=== PATIENT | female | born 1955 | race Caucasian/White ===

== ENCOUNTER 2017-05-03 06:26 | Day surgery (SDC) | payer OTHER ==
[~2017-05-03 06:26] MED LIST: ALENDRONATE SOD70 M2 PO; CALTRATE 600+D1 EAC2 PO; TESTOSTERONE CREAM TP; VITAMIN D1000 UNI2 PO; WOMEN'S DAILY1 EAC6 PO
[2017-05-04] MEDS ORDERED: ULTRAM50 M1 PO (07:51)
== END 2017-05-04 09:00 ==
LOC: WSU 06:26 → SHSC 06:30 → ORW 10:34 → PACU 11:34 → OBGF 12:50
PROC: 0UT94ZZ Resection of Uterus, Percutaneous Endoscopic Approach (ICD-10-PCS; principal; 2017-05-03)
PROC: 0UTC4ZZ Resection of Cervix, Percutaneous Endoscopic Approach (ICD-10-PCS; 2017-05-03)
PROC: 0UT24ZZ Resection of Bilateral Ovaries, Percutaneous Endoscopic Approach (ICD-10-PCS; 2017-05-03)
PROC: 0UT74ZZ Resection of Bilateral Fallopian Tubes, Percutaneous Endoscopic Approach (ICD-10-PCS; 2017-05-03)
PROC: 8E0W4CZ Robotic Assisted Procedure of Trunk Region, Percutaneous Endoscopic Approach (ICD-10-PCS; 2017-05-03)
DX: N88.8 Other specified noninflammatory disorders of cervix uteri (principal); N85.8 Other specified noninflammatory disorders of uterus; N83.322 Acquired atrophy of left fallopian tube; N83.321 Acquired atrophy of right fallopian tube; M19.90 Unspecified osteoarthritis, unspecified site; M81.0 Age-related osteoporosis without current pathological fracture; Z79.83 Long term (current) use of bisphosphonates; Z79.899 Other long term (current) drug therapy; Z88.5 Allergy status to narcotic agent; Z90.49 Acquired absence of other specified parts of digestive tract; Z90.89 Acquired absence of other organs; Z98.51 Tubal ligation status; Z98.890 Other specified postprocedural states
CPT/HCPCS: J0690; J3010; J7030; J7121